=== PATIENT | male | born 1945 | race Caucasian/White ===

== ENCOUNTER 2019-07-03 15:34 | Outpatient (CLI) | payer OTHER, SELFPAY ==
[2019-07-03 17:28] LABS: Basophils % 0.5 %; Eosinophils # 0.4 10^3/uL (0.0-0.8); Hematocrit 37.5 % (42.0-52.0); Hemoglobin 11.9 g/dL (11.7-16.6); Lymphocytes # 0.7 10^3/uL (0.8-4.8); Lymphocytes % 11.3 %; Mean Corpuscular HGB Conc 31.7 g/dL (30.0-36.0); Mean Corpuscular Hemoglobin 30.1 pg (28.0-34.0); Mean Corpuscular Volume 94.9 fL (80-94); Monocytes # 0.7 10^3/uL (0.2-0.9); Monocytes % 11.8 %; Neutrophils # 4.1 10^3/uL (1.8-7.7); Neutrophils % 69.7 %; Nucleated Red Blood Cells % 0 %; Platelet Count 173 10^3/cmm (130-400); Red Blood Count 3.95 10^6/uL (4.1-5.3); Red Cell Distribution Width 13.7 % (12.1-15.1); White Blood Count 5.9 10^3/uL (4.0-10.0)
[2019-07-03 18:44] LABS: Anion Gap 12.4 (5-19); Blood Urea Nitrogen 21 mg/dL (8-23); Carbon Dioxide 30 mmol/L (22-29); Chloride 101 mmol/L (98-107); Glucose 270 mg/dL (65-115); Osmolality Calculated 294 mOsm/kg (285-295); Potassium 4.4 mmol/L (3.5-5.1); Sodium 139 mmol/L (136-145)
== END 2019-07-03 15:35 | disposition home or self-care (01) ==
LOC: LAB 15:37
PROVIDERS: Family Provider Internal Medicine; PCP Internal Medicine; Visit Provider Internal Medicine
DX: J18.9 Pneumonia, unspecified organism (principal)
CPT/HCPCS: 80048; 85025

== ENCOUNTER 2019-07-12 14:51 | Outpatient (RCR) | payer OTHER, SELFPAY | END 2019-07-16 23:59 | disposition home or self-care (01) | LOC: WOUND 14:51 | PROVIDERS: Family Provider Internal Medicine; PCP Internal Medicine; Visit Provider Nurse Practitioner Family | DX: L89.611 Pressure ulcer of right heel, stage 1 (principal) | CPT/HCPCS: 99203; G0463 ==

== ENCOUNTER 2019-11-05 16:42 | Inpatient (IN) | payer OTHER, SELFPAY ==
[2019-11-05] VITALS (8 sets, daily range): BP systolic 76–144; BP diastolic 58–93; PULSE 79–101; RESP 18–30; O2SAT 91–100; BMI 28.8
--- NOTE | 2019-11-05 16:52 | W.ED.SOB ---
Documented by User: Michael Lopez DO 11/06/19 06:14 HPI - SOB/Dyspnea General: Chief Complaint: Shortness of Breath/Dyspnea Stated Complaint: DIFFICULTY BREATHING Time Seen by Provider: 11/05/19 16:44 History of Present Illness: HPI Narrative: 74-year-old male comes in by EMS with shortness of breath. He was on BiPAP on arrival. He had received 4 sublingual nitro and an inch of Nitropaste prior to arrival as well. He was able to verbalize a little to me but even in the few minutes that his BiPAP was off he began to desaturate and become very short of breath he was able to tell me he has not been sick or had a fever the last few days he has been coughing up a little bit more than normal. He resides in a [facility]. MD elicited complaint: shortness of breath and cough Pertinent past history: COPD Onset (ago): day(s) Timing: constant Severity: severe Exacerbating factors: exertion Relieving factors: oxygen, rest and other (Improved with BiPAP once he arrived at the hospital) Known history of: COPD Associated symptoms: Reports chest congestion, cough and nausea; Deny chest pain or fever(s) Treatment prior to arrival: oxygen, bronchodilator, nitroglycerin and other (EMS BiPAP) Review of Systems Const: Denies: fever(s), chills, body aches, change in appetite, fatigue or malaise ENMT: Denies: throat pain, ear or mastoid pain, nasal discharge or nasal congestion Card: Denies: chest pain Resp: Reports: chest congestion GI: Reports: nausea : Denies: flank pain, dysuria, urinary frequency or urinary urgency Skin/Breast: Denies: rash or pruritus PFSH ED PFSH: Medical History BPH (benign prostatic hyperplasia) CAD (coronary artery disease) Chronic back pain CKD (chronic kidney disease), stage IV Diabetes Diabetic foot ulcer Osteomyelitis status post amputation Gross hematuria Hematuria HTN (hypertension) Hyperlipidemia Insulin-requiring or dependent type II diabetes mellitus Ischemic cardiomyopathy 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 Myocardial infarction Surgical History H/O cardiac catheterization Ischemic cardiomyopathy with three-vessel coronary disease History of biopsy of bladder Biopsy revealed intense acute on chronic cystitis without any signs of malignancy, 01/03 S/P coronary artery stent placement S/P cystoscopy S/P tonsillectomy Status post amputation of toe Family History Other CAD (coronary artery disease) Myocardial infarction Stroke Social History Smoking and tobacco status: former smoker Alcohol intake: never Substance/Drug Use: never Housing: Skilled Nursing Physical Exam Const: COMMON NORMALS: no acute distress GENERAL APPEARANCE: cooperative and comfortable ORIENTATION/CONSCIOUSNESS: Yes awake, Yes oriented to person, Yes oriented to place and Yes oriented to time HENMT: COMMON NORMALS: normocephalic and atraumatic HEAD & SCALP: normocephalic and atraumatic Eye: COMMON NORMALS: Equal, round and reactive pupils present, EOMs intact bilaterally, conjunctivae normal and no scleral icterus CONJUNCTIVA: Yes conjunctivae normal PUPIL: Yes Equal, round and reactive pupils present Neck/C-Spine: COMMON NORMALS: no JVD Lymph: LYMPHATIC: no lymphadenopathy noted and no lymphedema noted Resp: EFFORT & INSPECTION: Yes abnormal respiratory pattern, Yes tachypneic, Yes decreased respiratory effort and Yes labored AUSCULTATION: wheezes and diminished lung sounds Cardio: COMMON NORMALS: no JVD, regular rate, regular rhythm and No murmurs present (Cardio) RATE: regular rate RHYTHM: regular rhythm GI: COMMON NORMALS: Soft to palpation and No hepatosplenomegaly present AUSCULTATION: Yes normoactive bowel sounds PALPATION: Yes Soft to palpation, No Tenderness to palpation present (GI), No Guarding due to palpation present (GI) and Yes No hepatosplenomegaly present Extremity: COMMON NORMALS: normal to inspection, capillary refill normal, no clubbing, cyanosis or edema, no calf tenderness and no pedal edema Neuro: SENSORIUM/ORIENTATION: Yes oriented to person, Yes oriented to place and Yes oriented to time Skin: COMMON NORMALS: no rashes or lesions noted GENERAL SKIN EXAM: no rashes or lesions noted Course Vital Signs: Vital signs: Vital Signs Temperature 97.9 F 11/06/19 04:00 Pulse Rate 55 L 11/06/19 04:00 Respiratory Rate 24 H 11/06/19 04:00 Blood Pressure 103/47 11/06/19 04:00 Pulse Oximetry 97 11/06/19 04:00 MDM - SOB/Dyspnea MDM Narrative: Medical decision making narrative: Care transferred to Dr. Bonds at change of shift Lab Data: Labs: Lab Results 11/05/19 11/05/19 11/05/19 Range/Units 16:50 16:50 16:50 WBC 9.9 (4.0-10.0) 10^3/ uL RBC 4.44 (4.1-5.3) 10^6/u L Hgb 13.1 (11.7-16.6) g/dL Hct 43.3 (42.0-52.0) % MCV 97.5 H (80-94) fL MCH 29.5 (28.0-34.0) pg MCHC 30.3 (30.0-36.0) g/dL RDW 13.5 (12.1-15.1) % Plt Count 247 (130-400) 10^3/c mm MPV 10.9 H (7.4-10.4) fL Neut % (Auto) 78.5 % Lymph % (Auto) 13.5 % [place] % (Auto) 4.7 % Eos % (Auto) 2.3 % Baso % (Auto) 0.4 % Neut # (Auto) 7.79 H (1.8-7.7) 10^3/u L Lymph # (Auto) 1.3 (0.8-4.8) 10^3/u L [place] # (Auto) 0.5 (0.2-0.9) 10^3/u L Eos # (Auto) 0.2 (0.0-0.8) 10^3/u L Baso # (Auto) 0.0 (0.0-0.1) 10^3/u L Nucleated RBC % (a uto) 0 % Nucleated RBCs # 0.0 /100WBC Fibrinogen (184-529) mg/dL D-Dimer (0-0.59) ug/mIFE U Specimen Type Sample Site ABG pH (7.35-7.45) ABG pCO2 (35-45) mmHg ABG pO2 (80.0-100.0) mmH g ABG HCO3 (22-26) mmol/L ABG O2 Saturation ABG Base Excess (-2.0-2.0) mmol/ L Raphael Test A-a O2 Gradient (5-10) mmHg Hematocrit (42-52) % Hgb O2 Saturation (95-100) % Carboxyhemoglobin (0.4-20.1) %THgb Methemoglobin (0.4-1.5) % Total Hemoglobin (14-18) g/dL Ionized Calcium (1.1-1.4) mmol/L O2 Delivery Device FiO2 % Loader Operator Supervisor ID Sodium 137 (136-145) mmol/L Potassium 4.9 (3.5-5.1) mmol/L Chloride 105 (98-107) mmol/L Carbon Dioxide 19 L (22-29) mmol/L Anion Gap 17.9 (5-19) BUN 30 H (8-23) mg/dL Creatinine 2.0 H (0.7-1.2) mg/dL Glucose 455 H (65-115) mg/dL Calculated Osmolal ity 301 H (285-295) mOsm/k g Lactic Acid 1.7 (0.5-2.2) mmol/L Calcium 8.9 (8.5-10.5) mg/dL Ferritin (30-400) ng/mL Total Bilirubin 0.2 (0.15-1.2) mg/dL AST 11 (0-40) U/L ALT 9 (0-41) U/L Alkaline Phosphata se 114 (40-130) IU/L C-Reactive Protein (0.0-4.9) mg/L NT-Pro-B Natriuret Pep (0-450) pg/mL Total Protein 7.5 (6.6-8.7) g/dL Albumin 3.8 (3.5-5.2) g/dL Globulin 3.7 (1.3-4.6) g/dL Influenza Type A A g (Negative) Influenza Type B A g (Negative) 11/05/19 11/05/19 11/05/19 Range/Units 16:50 16:50 16:50 WBC (4.0-10.0) 10^3/ uL RBC (4.1-5.3) 10^6/u L Hgb (11.7-16.6) g/dL Hct (42.0-52.0) % MCV (80-94) fL MCH (28.0-34.0) pg MCHC (30.0-36.0) g/dL RDW (12.1-15.1) % Plt Count (130-400) 10^3/c mm MPV (7.4-10.4) fL Neut % (Auto) % Lymph % (Auto) % [place] % (Auto) % Eos % (Auto) % Baso % (Auto) % Neut # (Auto) (1.8-7.7) 10^3/u L Lymph # (Auto) (0.8-4.8) 10^3/u L [place] # (Auto) (0.2-0.9) 10^3/u L Eos # (Auto) (0.0-0.8) 10^3/u L Baso # (Auto) (0.0-0.1) 10^3/u L Nucleated RBC % (a uto) % Nucleated RBCs # /100WBC Fibrinogen 515 (184-529) mg/dL D-Dimer 2.55 H (0-0.59) ug/mIFE U Specimen Type Sample Site ABG pH (7.35-7.45) ABG pCO2 (35-45) mmHg ABG pO2 (80.0-100.0) mmH g ABG HCO3 (22-26) mmol/L ABG O2 Saturation ABG Base Excess (-2.0-2.0) mmol/ L Raphael Test A-a O2 Gradient (5-10) mmHg Hematocrit (42-52) % Hgb O2 Saturation (95-100) % Carboxyhemoglobin (0.4-20.1) %THgb Methemoglobin (0.4-1.5) % Total Hemoglobin (14-18) g/dL Ionized Calcium (1.1-1.4) mmol/L O2 Delivery Device FiO2 % Loader Operator Supervisor ID Sodium (136-145) mmol/L Potassium (3.5-5.1) mmol/L Chloride (98-107) mmol/L Carbon Dioxide (22-29) mmol/L Anion Gap (5-19) BUN (8-23) mg/dL Creatinine (0.7-1.2) mg/dL Glucose (65-115) mg/dL Calculated Osmolal ity (285-295) mOsm/k g Lactic Acid (0.5-2.2) mmol/L Calcium (8.5-10.5) mg/dL Ferritin 82 (30-400) ng/mL Total Bilirubin (0.15-1.2) mg/dL AST (0-40) U/L ALT (0-41) U/L Alkaline Phosphata se (40-130) IU/L C-Reactive Protein 6.4 H (0.0-4.9) mg/L NT-Pro-B Natriuret Pep 2245 H (0-450) pg/mL Total Protein (6.6-8.7) g/dL Albumin (3.5-5.2) g/dL Globulin (1.3-4.6) g/dL Influenza Type A A g (Negative) Influenza Type B A g (Negative) 11/05/19 11/05/19 Range/Units 17:07 17:15 WBC (4.0-10.0) 10^3/ uL RBC (4.1-5.3) 10^6/u L Hgb (11.7-16.6) g/dL Hct (42.0-52.0) % MCV (80-94) fL MCH (28.0-34.0) pg MCHC (30.0-36.0) g/dL RDW (12.1-15.1) % Plt Count (130-400) 10^3/c mm MPV (7.4-10.4) fL Neut % (Auto) % Lymph % (Auto) % [place] % (Auto) % Eos % (Auto) % Baso % (Auto) % Neut # (Auto) (1.8-7.7) 10^3/u L Lymph # (Auto) (0.8-4.8) 10^3/u L [place] # (Auto) (0.2-0.9) 10^3/u L Eos # (Auto) (0.0-0.8) 10^3/u L Baso # (Auto) (0.0-0.1) 10^3/u L Nucleated RBC % (a uto) % Nucleated RBCs # /100WBC Fibrinogen (184-529) mg/dL D-Dimer (0-0.59) ug/mIFE U Specimen Type Arterial Sample Site Radial, right ABG pH 7.28 L (7.35-7.45) ABG pCO2 43.8 (35-45) mmHg ABG pO2 102.0 H (80.0-100.0) mmH g ABG HCO3 20.7 L (22-26) mmol/L ABG O2 Saturation 97.8 ABG Base Excess -5.9 L (-2.0-2.0) mmol/ L Raphael Test Pos A-a O2 Gradient 89.4 H (5-10) mmHg Hematocrit 39.9 L (42-52) % Hgb O2 Saturation 96.1 (95-100) % Carboxyhemoglobin 0.8 (0.4-20.1) %THgb Methemoglobin 0.9 (0.4-1.5) % Total Hemoglobin 13.0 L (14-18) g/dL Ionized Calcium 1.2 (1.1-1.4) mmol/L O2 Delivery Device Bipap FiO2 35.0 % Loader Operator Supervisor ID glc Sodium 141.0 (136-145) mmol/L Potassium 4.9 (3.5-5.1) mmol/L Chloride (98-107) mmol/L Carbon Dioxide (22-29) mmol/L Anion Gap (5-19) BUN (8-23) mg/dL Creatinine (0.7-1.2) mg/dL Glucose 438.0 H (65-115) mg/dL Calculated Osmolal ity (285-295) mOsm/k g Lactic Acid (0.5-2.2) mmol/L Calcium (8.5-10.5) mg/dL Ferritin (30-400) ng/mL Total Bilirubin (0.15-1.2) mg/dL AST (0-40) U/L ALT (0-41) U/L Alkaline Phosphata se (40-130) IU/L C-Reactive Protein (0.0-4.9) mg/L NT-Pro-B Natriuret Pep (0-450) pg/mL Total Protein (6.6-8.7) g/dL Albumin (3.5-5.2) g/dL Globulin (1.3-4.6) g/dL Influenza Type A A g Negative (Negative) Influenza Type B A g Negative (Negative) Discharge Plan Discharge Patient Disposition: Admitted As Inpatient Admit Provider: Whitney Mcbride Clinical Impression: CHF exacerbation Pneumonia Qualifiers: Pneumonia type: due to unspecified organism Laterality: right Lung location: unspecified part of lung Qualified Code(s): J18.9 - Pneumonia, unspecified organism Condition: Stable Discharge Date/Time: 11/05/19 20:34 Coding Level of Care Code ED Injection Molding Technician for Chg Fwd Exam Comprehensive Documented by User: Mike Bonds MD 11/05/19 20:15 HPI - SOB/Dyspnea General: Chief Complaint: Shortness of Breath/Dyspnea Stated Complaint: DIFFICULTY BREATHING Time Seen by Provider: 11/05/19 16:44 PFSH ED PFSH: Medical History BPH (benign prostatic hyperplasia) CAD (coronary artery disease) Chronic back pain CKD (chronic kidney disease), stage IV Diabetes Diabetic foot ulcer Osteomyelitis status post amputation Gross hematuria Hematuria HTN (hypertension) Hyperlipidemia Insulin-requiring or dependent type II diabetes mellitus Ischemic cardiomyopathy 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 Myocardial infarction Surgical History H/O cardiac catheterization Ischemic cardiomyopathy with three-vessel coronary disease History of biopsy of bladder Biopsy revealed intense acute on chronic cystitis without any signs of malignancy, 01/03 S/P coronary artery stent placement S/P cystoscopy S/P tonsillectomy Status post amputation of toe Family History Other CAD (coronary artery disease) Myocardial infarction Stroke Social History Smoking and tobacco status: former smoker Alcohol intake: never Substance/Drug Use: never Housing: Skilled Nursing Course Vital Signs: Vital signs: Vital Signs Temperature 97.9 F 11/06/19 04:00 Pulse Rate 55 L 11/06/19 04:00 Respiratory Rate 24 H 11/06/19 04:00 Blood Pressure 103/47 11/06/19 04:00 Pulse Oximetry 97 11/06/19 04:00 MDM - SOB/Dyspnea MDM Narrative: Medical decision making narrative: Anish presents here with shortness of breath and is found to have a right-sided pneumonia along with CHF exacerbation. Patient is improved here on BiPAP. Patient was hypotensive originally likely from receiving nitro as his blood pressure here is improved. Patient's lactate is normal and he has no signs of septic shock. Will admit patient to the cardiac stepdown unit I spoke to hospitalist Dr. Tam. Lab Data: Labs: Lab Results 11/05/19 11/05/19 11/05/19 Range/Units 16:50 16:50 16:50 WBC 9.9 (4.0-10.0) 10^3/ uL RBC 4.44 (4.1-5.3) 10^6/u L Hgb 13.1 (11.7-16.6) g/dL Hct 43.3 (42.0-52.0) % MCV 97.5 H (80-94) fL MCH 29.5 (28.0-34.0) pg MCHC 30.3 (30.0-36.0) g/dL RDW 13.5 (12.1-15.1) % Plt Count 247 (130-400) 10^3/c mm MPV 10.9 H (7.4-10.4) fL Neut % (Auto) 78.5 % Lymph % (Auto) 13.5 % [place] % (Auto) 4.7 % Eos % (Auto) 2.3 % Baso % (Auto) 0.4 % Neut # (Auto) 7.79 H (1.8-7.7) 10^3/u L Lymph # (Auto) 1.3 (0.8-4.8) 10^3/u L [place] # (Auto) 0.5 (0.2-0.9) 10^3/u L Eos # (Auto) 0.2 (0.0-0.8) 10^3/u L Baso # (Auto) 0.0 (0.0-0.1) 10^3/u L Nucleated RBC % (a uto) 0 % Nucleated RBCs # 0.0 /100WBC Fibrinogen (184-529) mg/dL D-Dimer (0-0.59) ug/mIFE U Specimen Type Sample Site ABG pH (7.35-7.45) ABG pCO2 (35-45) mmHg ABG pO2 (80.0-100.0) mmH g ABG HCO3 (22-26) mmol/L ABG O2 Saturation ABG Base Excess (-2.0-2.0) mmol/ L Raphael Test A-a O2 Gradient (5-10) mmHg Hematocrit (42-52) % Hgb O2 Saturation (95-100) % Carboxyhemoglobin (0.4-20.1) %THgb Methemoglobin (0.4-1.5) % Total Hemoglobin (14-18) g/dL Ionized Calcium (1.1-1.4) mmol/L O2 Delivery Device FiO2 % Loader Operator Supervisor ID Sodium 137 (136-145) mmol/L Potassium 4.9 (3.5-5.1) mmol/L Chloride 105 (98-107) mmol/L Carbon Dioxide 19 L (22-29) mmol/L Anion Gap 17.9 (5-19) BUN 30 H (8-23) mg/dL Creatinine 2.0 H (0.7-1.2) mg/dL Glucose 455 H (65-115) mg/dL Calculated Osmolal ity 301 H (285-295) mOsm/k g Lactic Acid 1.7 (0.5-2.2) mmol/L Calcium 8.9 (8.5-10.5) mg/dL Ferritin (30-400) ng/mL Total Bilirubin 0.2 (0.15-1.2) mg/dL AST 11 (0-40) U/L ALT 9 (0-41) U/L Alkaline Phosphata se 114 (40-130) IU/L C-Reactive Protein (0.0-4.9) mg/L NT-Pro-B Natriuret Pep (0-450) pg/mL Total Protein 7.5 (6.6-8.7) g/dL Albumin 3.8 (3.5-5.2) g/dL Globulin 3.7 (1.3-4.6) g/dL Influenza Type A A g (Negative) Influenza Type B A g (Negative) 11/05/19 11/05/19 11/05/19 Range/Units 16:50 16:50 16:50 WBC (4.0-10.0) 10^3/ uL RBC (4.1-5.3) 10^6/u L Hgb (11.7-16.6) g/dL Hct (42.0-52.0) % MCV (80-94) fL MCH (28.0-34.0) pg MCHC (30.0-36.0) g/dL RDW (12.1-15.1) % Plt Count (130-400) 10^3/c mm MPV (7.4-10.4) fL Neut % (Auto) % Lymph % (Auto) % [place] % (Auto) % Eos % (Auto) % Baso % (Auto) % Neut # (Auto) (1.8-7.7) 10^3/u L Lymph # (Auto) (0.8-4.8) 10^3/u L [place] # (Auto) (0.2-0.9) 10^3/u L Eos # (Auto) (0.0-0.8) 10^3/u L Baso # (Auto) (0.0-0.1) 10^3/u L Nucleated RBC % (a uto) % Nucleated RBCs # /100WBC Fibrinogen 515 (184-529) mg/dL D-Dimer 2.55 H (0-0.59) ug/mIFE U Specimen Type Sample Site ABG pH (7.35-7.45) ABG pCO2 (35-45) mmHg ABG pO2 (80.0-100.0) mmH g ABG HCO3 (22-26) mmol/L ABG O2 Saturation ABG Base Excess (-2.0-2.0) mmol/ L Raphael Test A-a O2 Gradient (5-10) mmHg Hematocrit (42-52) % Hgb O2 Saturation (95-100) % Carboxyhemoglobin (0.4-20.1) %THgb Methemoglobin (0.4-1.5) % Total Hemoglobin (14-18) g/dL Ionized Calcium (1.1-1.4) mmol/L O2 Delivery Device FiO2 % Loader Operator Supervisor ID Sodium (136-145) mmol/L Potassium (3.5-5.1) mmol/L Chloride (98-107) mmol/L Carbon Dioxide (22-29) mmol/L Anion Gap (5-19) BUN (8-23) mg/dL Creatinine (0.7-1.2) mg/dL Glucose (65-115) mg/dL Calculated Osmolal ity (285-295) mOsm/k g Lactic Acid (0.5-2.2) mmol/L Calcium (8.5-10.5) mg/dL Ferritin 82 (30-400) ng/mL Total Bilirubin (0.15-1.2) mg/dL AST (0-40) U/L ALT (0-41) U/L Alkaline Phosphata se (40-130) IU/L C-Reactive Protein 6.4 H (0.0-4.9) mg/L NT-Pro-B Natriuret Pep 2245 H (0-450) pg/mL Total Protein (6.6-8.7) g/dL Albumin (3.5-5.2) g/dL Globulin (1.3-4.6) g/dL Influenza Type A A g (Negative) Influenza Type B A g (Negative) 11/05/19 11/05/19 Range/Units 17:07 17:15 WBC (4.0-10.0) 10^3/ uL RBC (4.1-5.3) 10^6/u L Hgb (11.7-16.6) g/dL Hct (42.0-52.0) % MCV (80-94) fL MCH (28.0-34.0) pg MCHC (30.0-36.0) g/dL RDW (12.1-15.1) % Plt Count (130-400) 10^3/c mm MPV (7.4-10.4) fL Neut % (Auto) % Lymph % (Auto) % [place] % (Auto) % Eos % (Auto) % Baso % (Auto) % Neut # (Auto) (1.8-7.7) 10^3/u L Lymph # (Auto) (0.8-4.8) 10^3/u L [place] # (Auto) (0.2-0.9) 10^3/u L Eos # (Auto) (0.0-0.8) 10^3/u L Baso # (Auto) (0.0-0.1) 10^3/u L Nucleated RBC % (a uto) % Nucleated RBCs # /100WBC Fibrinogen (184-529) mg/dL D-Dimer (0-0.59) ug/mIFE U Specimen Type Arterial Sample Site Radial, right ABG pH 7.28 L (7.35-7.45) ABG pCO2 43.8 (35-45) mmHg ABG pO2 102.0 H (80.0-100.0) mmH g ABG HCO3 20.7 L (22-26) mmol/L ABG O2 Saturation 97.8 ABG Base Excess -5.9 L (-2.0-2.0) mmol/ L Raphael Test Pos A-a O2 Gradient 89.4 H (5-10) mmHg Hematocrit 39.9 L (42-52) % Hgb O2 Saturation 96.1 (95-100) % Carboxyhemoglobin 0.8 (0.4-20.1) %THgb Methemoglobin 0.9 (0.4-1.5) % Total Hemoglobin 13.0 L (14-18) g/dL Ionized Calcium 1.2 (1.1-1.4) mmol/L O2 Delivery Device Bipap FiO2 35.0 % Loader Operator Supervisor ID glc Sodium 141.0 (136-145) mmol/L Potassium 4.9 (3.5-5.1) mmol/L Chloride (98-107) mmol/L Carbon Dioxide (22-29) mmol/L Anion Gap (5-19) BUN (8-23) mg/dL Creatinine (0.7-1.2) mg/dL Glucose 438.0 H (65-115) mg/dL Calculated Osmolal ity (285-295) mOsm/k g Lactic Acid (0.5-2.2) mmol/L Calcium (8.5-10.5) mg/dL Ferritin (30-400) ng/mL Total Bilirubin (0.15-1.2) mg/dL AST (0-40) U/L ALT (0-41) U/L Alkaline Phosphata se (40-130) IU/L C-Reactive Protein (0.0-4.9) mg/L NT-Pro-B Natriuret Pep (0-450) pg/mL Total Protein (6.6-8.7) g/dL Albumin (3.5-5.2) g/dL Globulin (1.3-4.6) g/dL Influenza Type A A g Negative (Negative) Influenza Type B A g Negative (Negative) Critical Care Time Critical Care Time: Critical Care Time: Yes Total Critical Care Time: 35 Attestation: This case had a high probability of a clinically significant, sudden, or life threatening deterioration of this patient's condition which required my full and direct attention, intervention and personal management. Discharge Plan Discharge Patient Disposition: Admitted As Inpatient Admit Provider: Whitney Mcbride Clinical Impression: CHF exacerbation Pneumonia Qualifiers: Pneumonia type: due to unspecified organism Laterality: right Lung location: unspecified part of lung Qualified Code(s): J18.9 - Pneumonia, unspecified organism Condition: Stable Discharge Date/Time: 11/05/19 20:34 Coding Level of Care Code ED Injection Molding Technician for g Fwd Exam Comprehensive
--- NOTE | 2019-11-05 16:54 | XRR_ITS ---
PROCEDURE INFORMATION: Exam: XR Chest, 1 View Exam date and time: 11/05/2019 5:29 PM Age: 74 years old Clinical indication: Cough and dyspnea; Prior surgery; Surgery date: 6+ months; Surgery type: Pacemaker; Additional info: Dyspnea/cough TECHNIQUE: Imaging protocol: XR of the chest Views: 1 view. COMPARISON: CR Chest 1 [place] [id number] 04/20/2018 11:11 PM FINDINGS: Lungs: Airspace disease, including newly developed right upper lobe airspace disease, consistent with bronchopneumonia in the appropriate clinical setting. Pleural space: Questionable small left pleural effusion. Heart/Mediastinum: Borderline cardiomegaly. Diaphragm: Asymmetric elevation of the right hemidiaphragm. Bones/joints: Degenerative change. XR/XR chest 1V portable [id number] IMPRESSION: Airspace disease, including newly developed right upper lobe airspace disease, consistent with bronchopneumonia in the appropriate clinical setting.
[2019-11-05 17:01] LABS: Basophils % 0.4 %; Eosinophils # 0.2 10^3/uL (0.0-0.8); Eosinophils % 2.3 %; Hematocrit 43.3 % (42.0-52.0); Hemoglobin 13.1 g/dL (11.7-16.6); Lymphocytes # 1.3 10^3/uL (0.8-4.8); Lymphocytes % 13.5 %; Mean Corpuscular HGB Conc 30.3 g/dL (30.0-36.0); Mean Corpuscular Hemoglobin 29.5 pg (28.0-34.0); Mean Corpuscular Volume 97.5 fL (80-94); Mean Platelet Volume 10.9 fL (7.4-10.4); Monocytes # 0.5 10^3/uL (0.2-0.9); Monocytes % 4.7 %; Neutrophils # 7.79 10^3/uL (1.8-7.7); Neutrophils % 78.5 %; Nucleated Red Blood Cells % 0 %; Platelet Count 247 10^3/cmm (130-400); Red Blood Count 4.44 10^6/uL (4.1-5.3); Red Cell Distribution Width 13.5 % (12.1-15.1); White Blood Count 9.9 10^3/uL (4.0-10.0)
--- NOTE | 2019-11-05 17:01 | PC.NURSE ---
PT BP OF 74/56 DR. TERAN AT BEDSIDE INFORMED DR. TERAN OF BP VERBALIZED UNDERSTANDING VO TO MONITOR PT.
[2019-11-05 17:15] LABS: Lactic Sepsis W/Reflex 1.7 mmol/L (0.5-2.2)
[2019-11-05 17:17] LABS: Alanine Aminotransferase 9 U/L (0-41); Albumin Level 3.8 g/dL (3.5-5.2); Alkaline Phosphatase 114 IU/L (40-130); Anion Gap 17.9 (5-19); Aspartate Amino Transferase 11 U/L (0-40); Blood Urea Nitrogen 30 mg/dL (8-23); Calcium 8.9 mg/dL (8.5-10.5); Carbon Dioxide 19 mmol/L (22-29); Chloride 105 mmol/L (98-107); Globulin 3.7 g/dL (1.3-4.6); Glucose 455 mg/dL (65-115); Osmolality Calculated 301 mOsm/kg (285-295); Potassium 4.9 mmol/L (3.5-5.1); Sodium 137 mmol/L (136-145); Total Bilirubin 0.2 mg/dL (0.15-1.2); Total Protein 7.5 g/dL (6.6-8.7)
[2019-11-05 17:26] LABS: ABG PCO2 43.8 mmHg (35-45); ABG PH Result 7.28 (7.35-7.45); Alveolar-Arterial Oxygen Gradi 89.4 mmHg (5-10); Arterial Blood Gas Hematocrit 39.9 % (42-52); Base Excess ABG -5.9 mmol/L (-2.0-2.0); Blood Gas Allen Test Pos; Blood Gas Operator Identificat glc; Blood Gas Sample Site Radial, right; Blood Gas Sample Type Arterial; Carboxyhemoglobin 0.8 %THgb (0.4-20.1); HCO3 ABG 20.7 mmol/L (22-26); HGB O2 Sat 96.1 % (95-100); Ionized Calcium Level - ABG 1.2 mmol/L (1.1-1.4); Methemoglobin 0.9 % (0.4-1.5); Oxygen Device BIPAP; Oxygen Saturation ABG 97.8; Potassium Level - ABG 4.9 mmol/L (3.5-5.0)
[2019-11-05 17:33] LABS: Influenza A by IFA Negative (Negative)
[2019-11-05 17:34] LABS: Influenza B by IFA Negative (Negative)
[2019-11-05 17:38] LABS: NT Pro B Type Natriuretic Pept 2245 pg/mL (0-450)
[2019-11-05 18:28] LABS: Fibrinogen 515 mg/dL (184-529)
[2019-11-05 18:30] LABS: D Dimer 2.55 ug/mIFEU (0-0.59)
[2019-11-05 18:34] LABS: C Reactive Protein 6.4 mg/L (0.0-4.9); Ferritin 82 ng/mL (30-400)
[2019-11-05] MEDS: aztreonam 2,000 MG in sodium chloride 0.9% (plus) 100 ML 200 MG IV (18:46)
[2019-11-05] MEDS: sodium chloride 0.9% 500 ML 999 ML IV (18:47)
[2019-11-05] MEDS: vancomycin 1,000 MG in sodium chloride 0.9% 250 ML 250 MG IV (19:40)
--- NOTE | 2019-11-05 20:30 | PC.NURSE ---
REPORT CALLED TO TAMY Mcbride RN
--- NOTE | 2019-11-05 20:37 | PM.HP ---
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 Patient is stating that he was in his usual state of health at the skilled nursing 1 all of a sudden around evening he started experiencing shortness of breath while he was at rest, he was struggling to take deep breaths, he did not notice any chest pain, fever, increased sputum production, he brings up greenish sputum which is chronic for him, he has not noticed any changes in his chronic cough or sputum production. He is denying dysuria, nausea, vomiting, headache or pleuritic chest pain. He has not noticed any orthopnea, PND, weight gain. Patient is endorsing sedentary lifestyle, he is using wheelchair for ambulation. Because of worsening shortness of breath he was sent to the hospital for further evaluation, EMS gave him 3 doses of nitroglycerin sublingually and put him on Nitropaste, loaded him with aspirin, on arrival to the ED he was hypotensive systolic blood pressure in 60s which improved after taking of Nitropaste and 500 mL bolus which improved blood pressure 103/60mmhg, patient was chest pain-free at that time, diagnosis in the ER revealed right lobe pneumonia, CHF exacerbation with bilateral vascular congestion evident on chest x-ray with high BNP, he was tested for COVID, he received vancomycin and aztreonam. Blood gas revealed metabolic acidosis due to LAURA, he did well on BiPAP. At the time of my evaluation patient was afebrile, hemodynamically stable, systolic blood pressure 144, no active respiratory distress, very low risk for tu COVID 19. Considering high d-dimer and troponin around 100 I have started him on therapeutic dose of heparin, loaded him with Plavix and started high-dose statin and metoprolol succinate, patient is chest pain-free. He was off BiPAP at the time of my evaluation. Review of Systems Const: Reports: body aches and fatigue; Denies: fever(s) or chills Eyes: Denies: change in vision ENMT: Denies: throat pain Card: Reports: dyspnea on exertion; Denies: chest pain, swelling of feet/ankles, lightheadedness, pre-syncope or orthopnea Resp: Reports: dyspnea and productive cough; Denies: wheezing, pain on inspiration or change in phlegm color GI: Denies: abdominal pain, nausea or vomiting : Denies: flank pain Musc: Denies: neck pain or back pain Skin/Breast: Reports: rash and lesions Neuro: Reports: weakness in extremities and difficulty walking; Denies: headache(s) Psych: Denies: anxiety or depression Endo: Reports: polyuria and polydipsia Robb/Lymph: Denies: easy bruising All/Imm: Denies: urticaria Medications/Allergies Home Medications Medication Instructions Recorded Confirmed Last Taken Type Lactobacillus acidophilus See Rx Instructions .ROUTE .COMPLEX 08/21/19 11/05/19 Unknown History acetaminophen 650 mg 650 mg PO Q6H tab 08/21/19 11/05/19 Unknown History tablet,extended release albuterol sulfate 2.5 mg INHALATION Q6H PRN 08/21/19 11/05/19 Unknown History ascorbic acid (vitamin C) 500 mg 500 mg PO BID cap 08/21/19 11/05/19 Unknown History capsule aspirin 81 mg chewable tablet 81 mg PO DAILY 08/21/19 11/05/19 11/05/19 History atorvastatin 20 mg tablet 20 mg PO DAILY 08/21/19 11/05/19 Unknown History famotidine 20 mg tablet 20 mg PO DAILY 08/21/19 11/05/19 11/05/19 History finasteride 5 mg tablet 5 mg PO DAILY 08/21/19 11/05/19 Unknown History gabapentin 300 mg capsule 300 mg PO TID 08/21/19 11/05/19 11/05/19 History guaifenesin 400 mg tablet 400 mg PO DAILY tab 08/21/19 11/05/19 Unknown History insulin glargine 100 unit/mL (3 45 unit SUBCUT DAILY ml 08/21/19 11/05/19 Unknown History mL) subcutaneous pen lisinopril 5 mg tablet 5 mg PO DAILY 08/21/19 11/05/19 11/05/19 History loperamide 2 mg tablet 2 mg PO Q6H PRN 08/21/19 11/05/19 Unknown History metoprolol tartrate 50 mg tablet 50 mg PO DAILY 08/21/19 11/05/19 Unknown History multivitamin,st-kuou-mulqhidm 1 tab PO DAILY 08/21/19 11/05/19 Unknown History tamsulosin 0.4 mg capsule 0.4 mg PO DAILY 08/21/19 11/05/19 Unknown History Allergies Allergy/AdvReac Type Severity Reaction Status Date / Time ciprofloxacin Allergy Unknown Verified 11/05/19 18:59 methocarbamol Allergy Unknown Verified 08/21/19 14:07 Penicillins Allergy Unknown Verified 08/21/19 14:07 PFSH Acute PFSH: Medical History BPH (benign prostatic hyperplasia) CAD (coronary artery disease) Chronic back pain CKD (chronic kidney disease), stage IV Diabetes Diabetic foot ulcer Osteomyelitis status post amputation Gross hematuria Hematuria HTN (hypertension) Hyperlipidemia Insulin-requiring or dependent type II diabetes mellitus Ischemic cardiomyopathy 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 Myocardial infarction Surgical History H/O cardiac catheterization Ischemic cardiomyopathy with three-vessel coronary disease History of biopsy of bladder Biopsy revealed intense acute on chronic cystitis without any signs of malignancy, 01/03 S/P coronary artery stent placement S/P cystoscopy S/P tonsillectomy Status post amputation of toe Family History Other CAD (coronary artery disease) Myocardial infarction Stroke Social History Smoking and tobacco status: former smoker Alcohol intake: never Substance/Drug Use: never Housing: Detention Vitals/I&O/Wt Last Vital Signs Pulse 79 11/05/19 19:30 Resp 24 H 11/05/19 19:30 BP 101/74 11/05/19 19:30 Pulse Ox 100 11/05/19 19:30 Weight last 48 hrs Weight 102.058 kg Physical Exam Narrative: EXAM NARRATIVE: Head to toe examination Elderly male without any active respiratory distress saturating well 95% on room air Pleasant to communicate Alert oriented x3 GCS 15 EOMI, PERRLA Proximal muscle weakness, Diabetic proximal muscle dystrophy S1, S2 no clinical signs of CHF exacerbation, no lower extremity edema, Venous stasis dermatitis bilateral lower extremity Left first MTP amputation site without any active drainage Abdomen soft nontender nondistended bowel sound present Bilateral breath sounds with crackles diffuse without any active wheezing, no active restaurant distress or use of accessory muscles Irritable mood and behavior No ischemia gangrene ulcer of lower extremity Dorsalis pedis pulses 2+ bilaterally Data : 11/05/19 16:50 11/05/19 16:50 Micro: Microbiology 11/05/19 17:20 Blood Culture - Preliminary Blood SPECIMEN COLLECTED 11/05/19 16:50 Blood Culture - Preliminary Blood SPECIMEN COLLECTED A&P Assessment and plan (1) CHF exacerbation: Status: Acute (2) Pneumonia: Status: Acute Qualifiers: Laterality: right Lung location: unspecified part of lung Pneumonia type: due to unspecified organism Qualified Code(s): J18.9 - Pneumonia, unspecified organism (3) NSTEMI (non-ST elevated myocardial infarction): Status: Acute (4) Ischemic cardiomyopathy: Status: Acute (5) Acute kidney injury superimposed on chronic kidney disease: Status: Acute Additional A&P Information Acute CHF exacerbation due to right sided pneumonia EF 40%, high BNP Clinically no overt signs of CHF exacerbation Chest imaging is revealing bilateral pulmonary venous congestion He is na?ve to Lasix I would use 40 mg for now Echo in the am Non-ST segment elevation [place] High troponin and d-dimer without ST segment elevation I would start him on therapeutic dose of heparin because of his established history of coronary disease Currently chest pain-free We will follow-up with the echo in the am Right now I do not have a good diagnosis for high d-dimer(other than pneumonia, but he is low on pneumonia severity index as well), continue heparin drip, will request perfusion scan in the morning to rule out PE considering his sedentary lifestyle, he is low risk for COVID, no signs of DIC Right-sided pneumonia Is from skilled nursing no recent visit to the hospital or use of antibiotics in last 90 days, I would use ceftriaxone and azithromycin, bacterial and Legionella antigen to be tested, he received vancomycin and aztreonam in the ED, currently afebrile no signs of sepsis Pneumonia severity index is very low No active respiratory distress COVID to be ruled out: However low risk Acute on chronic kidney disease stage III-IV with metabolic acidosis Hold lisinopril This is most likely cardiorenal Anticipating improvement with Lasix Baseline creatinine seems to be around 1.4-1.5 Metabolic acidosis with mild CO2 retention currently doing well off BiPAP, he required BiPAP for about half an hour in the ED Goals of care: Patient wants CPR without intubation He is DNI Cardiac consistent carb diet DVT prophylaxis not needed because of active heparin drip therapeutic dose Attestations Medical Necessity Statement*: Anticipating stay in the hospital cross more than 2 midnights currently need management for pneumonia and non-ST segment elevation [place] with CHF exacerbation Time Spent in Patient Care: (>than 50% of time spent in counselling and/or direct pt care on unit). 60 minutes Coding Level of Care Code Acute Air Conditioner Installer Helper for Idalmisg Fwd Diagnoses CHF exacerbation I50.9 Pneumonia J18.9 Laterality: right Lung location: unspecified part of lung Pneumonia type: due to unspecified organism NSTEMI (non-ST elevated myocardial infarction) I21.4 Ischemic cardiomyopathy I25.5 Acute kidney injury superimposed on chronic kidney disease N17.9; N18.9
--- NOTE | 2019-11-05 20:40 | PC.NURSE ---
Patient arrived from ER. Patient alert and oriented. Patient on covid precautions. Patient vitals obtained and telemetry placed. Paper work not sent from skilled nursing will attempt to obtain.
[2019-11-05 20:58] LABS: Troponin(5th) Baseline 99 ng/L (0-15)
--- NOTE | 2019-11-05 22:00 | ECG_ITS ---
[facility] Test Date: 2019-11-06 Pat Name: Anish Yoder Department: Room: 103 Gender: Male Field Service Manager: mal NATHANB: 1945 Requested By: Whitney Mcbride Order Number: [id number] Joana MD: Filiberto Stone M.D. Measurements Intervals [place] Rate: 62 P: -4 IN: 211 QRS: -53 QRSD: 110 T: 84 QT: 424 QTc: 433 Interpretive Statements SINUS RHYTHM WITH FIRST DEGREE AV BLOCK POSSIBLE ANTERIOR MYOCARDIAL INFARCTION [30 ms Q WAVE IN V3/V4, OR R < 0.2 mV IN V4], PROBABLY OLD INFERIOR MYOCARDIAL INFARCTION [40+ ms Q WAVE AND/OR ST/T ABNORMALITY IN II/aVF], PROBABLY OLD Compared to ECG 04/20/2018 23:32:35 No significant changes Electronically Signed On 11-06-2019 20:27:36 CDT by Filiberto Stone M.D. [id number]
[2019-11-05 22:02] LABS: Glucose Point of Care 395 mg/dL (70-110)
[2019-11-05] MEDS: atorvastatin 40 mg Tablet 80 MG PO (22:42)
[2019-11-05 22:58] LABS: Troponin 5 2HR 123.9 ng/L (0-15); Troponin 5 2HR Delta 24.9 ABS# (0-10)
--- NOTE | 2019-11-05 23:00 | PC.NURSE ---
Patient refused heparin drip and plavix. Attempted to educate patient on the need for medication. Doctor notified.
[2019-11-06] VITALS (9 sets, daily range): BP systolic 92–126; BP diastolic 47–72; PULSE 53–93; RESP 17–24; TEMP 36.6–37; O2SAT 92–98
--- NOTE | 2019-11-06 | PC.NURSE ---
Addendum entered by Rebecca Tarango RN 11/06/19 03:22: still awaiting fax with updated medication list. Original Note: called [facility] reguarding medication list and the nurse stated she would fax over a medication list.
--- NOTE | 2019-11-06 01:54 | ECG_ITS ---
[facility] Test Date: 2019-11-06 Pat Name: Anish Yoder Department: Room: 103 Gender: Male Entry Level Lab Technician: : 1945 Requested By: Mike Bonds Order Number: [id number] Joana MD: Filiberto Stone M.D. Measurements Intervals [place] Rate: 54 P: -21 [place]: 235 QRS: -47 QRSD: 102 T: 59 QT: 381 QTc: 363 Interpretive Statements SINUS BRADYCARDIA WITH SINUS ARRHYTHMIA WITH FIRST DEGREE AV BLOCK POSSIBLE ANTERIOR MYOCARDIAL INFARCTION [30 ms Q WAVE IN V3/V4, OR R < 0.2 mV IN V4], PROBABLY OLD INFERIOR MYOCARDIAL INFARCTION [40+ ms Q WAVE AND/OR ST/T ABNORMALITY IN II/aVF], PROBABLY OLD Compared to ECG 11/06/2019 00:37:02 Sinus rhythm no longer present Myocardial infarct finding still present Electronically Signed On 11-06-2019 20:37:11 CDT by Filiberto Stone M.D. [id number]
[2019-11-06 03:01] LABS: Basophils % 0.3 %; Eosinophils # 0.1 10^3/uL (0.0-0.8); Eosinophils % 1.1 %; Hematocrit 34.3 % (42.0-52.0); Hemoglobin 10.8 g/dL (11.7-16.6); Lymphocytes # 1.2 10^3/uL (0.8-4.8); Lymphocytes % 13.5 %; Mean Corpuscular HGB Conc 31.5 g/dL (30.0-36.0); Mean Corpuscular Hemoglobin 30.2 pg (28.0-34.0); Mean Corpuscular Volume 95.8 fL (80-94); Mean Platelet Volume 11.5 fL (7.4-10.4); Monocytes % 10.7 %; Neutrophils # 6.75 10^3/uL (1.8-7.7); Neutrophils % 74.1 %; Nucleated Red Blood Cells % 0 %; Platelet Count 187 10^3/cmm (130-400); Red Blood Count 3.58 10^6/uL (4.1-5.3); Red Cell Distribution Width 13.7 % (12.1-15.1); White Blood Count 9.1 10^3/uL (4.0-10.0)
[2019-11-06 03:08] LABS: Troponin 5 6HR 143.4 ng/L (0-15); Troponin 5 6HR Delta 44.4 ng/L (0-12)
[2019-11-06 03:10] LABS: Anion Gap 17.6 (5-19); Blood Urea Nitrogen 31 mg/dL (8-23); Calcium 7.9 mg/dL (8.5-10.5); Carbon Dioxide 20 mmol/L (22-29); Chloride 105 mmol/L (98-107); Glucose 199 mg/dL (65-115); Osmolality Calculated 289 mOsm/kg (285-295); Potassium 4.6 mmol/L (3.5-5.1); Sodium 138 mmol/L (136-145)
--- NOTE | 2019-11-06 03:40 | PC.NURSE ---
Dr. Mcbride notified of elevated troponin. Doctor Reed talked with patient about the heparin and why he was refusing. Patient refused heparin drip due to past family experience. Will continue to monitor patient.
--- NOTE | 2019-11-06 06:12 | PC.NURSE ---
End of Shift: Patient has had no complaints of chest pain. Patient is aware of risks/benefits after talking to the Doctor about heparin and patient does not not want blood thinners. Patient is resting comfortable in bed and vitals are stable. Will continue to monitor.
[2019-11-06 06:20] LABS: Glucose Point of Care 239 mg/dL (70-110)
[2019-11-06] MEDS: FUROsemide 40 mg Tablet PO (07:14)
--- NOTE | 2019-11-06 08:59 | USCV_ITS ---
Anish Yoder Age: 74 Gender: M : 1945 Exam Date: 11/06/2019 11:14 Ordering Phys: Brijesh August MD Technologist: Malorie Lozano Exam Location: [facility] [place] Indication: PAINFUL LEGS HISTORY: Painful Legs PROCEDURES: Venous duplex imaging was performed in bilateral lower extremities. The following venous structures were evaluated: common femoral vein, profunda vein, proximal portion of the greater saphenous vein, superficial femoral vein, and the popliteal vein. In addition, the posterior tibial and peroneal trunk were evaluated. Serial compression, augmentation maneuvers, and spectral Doppler flow evaluation were performed. FINDINGS: Normal 2-D Doppler and augmentation and compressibility throughout the lower extremity venous structures. Additional imaging through the proximal calf veins also reveals no thrombus. Limited evaluation of the greater saphenous vein is patent with no thrombus. CONCLUSIONS No DVT bilateral lower extremities. Dr. Tiffany Garcia DO (Electronically Signed) Final Date: 06 November 2019 12:45 S
--- NOTE | 2019-11-06 09:00 | XR_ITS ---
WS: [id number] PORTABLE CHEST HISTORY: follow up pneumonia COMPARISON: 11/05/2019 Lung volumes are decreased with moderate elevation of the RIGHT hemidiaphragm. Significant improvemen t in aeration of the RIGHT upper lobe. There is still vague increased opacification and atelectasis. Pulmonary vasculature is improved. Small LEFT pleural effusion suspected. Cardiac size: Moderately enlarged cardiac silhouette. Mediastinum/Aorta: Mild atherosclerosis aorta. No osseous abnormality seen. XR/XR chest 1V portable [id number] IMPRESSION: 1. Significant improvement in the RIGHT upper lobe pneumonia since 11/05/2019. 2. Mild improvement in pulmonary edema and additional bilateral interstitial t hickening.
[2019-11-06] MEDS: famotidine 20 mg Tablet PO (09:31)
[2019-11-06] MEDS: aspirin 81 mg Chew Tablet PO (09:31)
[2019-11-06] MEDS: tamsulosin 0.4 mg Capsule PO (09:32)
[2019-11-06] MEDS: finasteride 5 mg Tablet PO (09:32)
[2019-11-06] MEDS: atorvastatin 40 mg Tablet 80 MG PO (09:33)
[2019-11-06] MEDS: azithromycin 250 mg Tablet 500 MG PO (09:33)
[2019-11-06] MEDS: cefTRIAXone 1,000 MG in sodium chloride 0.9% (plus) 50 ML 100 MG IV (09:35)
[2019-11-06] MEDS: insulin glargine 100 units/1 mL 25 UNIT SUBCUT (09:55)
--- NOTE | 2019-11-06 10:03 | PC.NURSE ---
patient refusing to take plavix or metoprolol this am Dr carreno notified instructions to explain again to patient why he needs to take the plavix patient educated on plavix and the importance of the medication to medicatlly manage his condition patient states when i get a confirmation that i have a blood clot in my legs i will take the plavix until then I will not take it' Mata notified of patient continued refusal
--- NOTE | 2019-11-06 10:54 | PC.CHAP ---
Pastoral Care Encounter/Spiritual Assessment Type of Contact [] Declined student support counselor visit [] Patient/Family/Request visit [] Outpatient visit [] Follow-up visit [] Physician referral [] Code/Alert [x] Routine visit [] Staff referral [] Actively dying [] Patient sleeping [] Family support [] [] Out of room [] Palliative care [] [] Receiving care in room [] Pre-surgical visit [] Trauma [] Long length of stay [] ICU visit [x] Other: Isolation Relational/Emotional Strength [] Patient feels connected with others/family/visitors/staff [] Distress [] Loneliness/isolation [] Abandonment Spirituality of Patient [] Person of Alanis [] Attends Taoist of their Alanis [] Believes in Prayer [] Reads Bible or Yazidi materials [] There are Spiritual issues to be addressed [employer] Advanced Operator Maintainer Interventions [] Prayer [] Active listening [] Non-anxious presence [] Spiritual/emotional support [] Crisis/trauma care [] Spiritual counseling [] Bereavement support [] Provided bereavement packet [] Provided Bible/devotional materials [] Provided toy/stuffed animal, coloring book to patient or family member [] Provided Communion [] Anointing/[place] [] Salvation [] Completed spiritual assessment [] Other: Impact on Illness or Injury [] Angry [] Fearful [] Anxious [] Often cries [] Exhaustion [] Unable to work [] Unable to attend jewish [] Unable to walk/stand [] Unable to read [] Unable to drive [] Unable to eat/drink [] Unable to sleep [] Unable to be with family [] Patient intubated [] Other: Summary Time spent with patient
[2019-11-06 11:10] LABS: Glucose Point of Care 153 mg/dL (70-110)
--- NOTE | 2019-11-06 12:49 | PC.NURSE ---
medications confirmed with Basia at [facility]
--- NOTE | 2019-11-06 13:07 | PM.PN ---
Subjective Subjective: Interval history: Anish reports he does not want to be on the heparin. He does not want any anticoagulant. He would only want treated medically with medicines for an AR if he had one. He does not want any surgical procedures. He reports he will allow venous duplex of his legs. He denies any chest pain now. He reports no shortness of breath now. He reports no dyspnea. History and physical was reviewed. Medications: Reviewed: Yes Vitals/I&O/Wt Last Vital Signs Temp 98.0 F 11/06/19 10:37 Pulse 53 L 11/06/19 10:37 Resp 18 11/06/19 10:37 BP 94/55 11/06/19 10:37 Pulse Ox 94 11/06/19 10:37 11/05/19 11/06/19 11/06/19 22:59 06:59 14:59 Intake Total 200 / 200 600 / 800 Output Total 350 / 350 100 / 450 Balance -150 / -150 500 / 350 Weight last 48 hrs Weight 102.058 kg Physical Exam Narrative: EXAM NARRATIVE: General exam no apparent distress Cardiovascular regular rhythm, bradycardic rate, without murmur Lungs clear no wheezing Abdomen is soft with positive bowel sounds Extremities no cyanosis clubbing or edema Data : 11/06/19 02:33 11/06/19 02:33 Micro: Microbiology 11/05/19 21:45 Legionella Urinary Antigen - Final Urine,Voided Bacterial Antigens - Final 11/05/19 17:20 Blood Culture - Preliminary Blood SPECIMEN COLLECTED 11/05/19 16:50 Blood Culture - Preliminary Blood SPECIMEN COLLECTED A&P Assessment and plan (1) CHF exacerbation: I think from the description of the events he may have had acute pulmonary edema. He is already significantly better and appears better compensated although slightly hypotensive. His heart rate is also slightly bradycardic. This appears to be sinus bradycardia, and he was on a beta-saman prior to presenting to the hospital. I discussed with him with his elevated d-dimer I could not rule out a pulmonary embolism. I discussed with testing avenues, potential further treatment with anticoagulants. He is not really wanting to take any blood thinners. He does not want a CTA. He will allow venous duplex. VQ scan could also be considered. Previous ejection fraction was 40%. Considering his refusal other than medical management and echocardiogram will not be helpful COVID test is pending Diuresis if blood pressure allows Status: Acute (2) Pneumonia: Continue IV Rocephin, azithromycin Status: Acute Qualifiers: Laterality: right Lung location: unspecified part of lung Pneumonia type: due to unspecified organism Qualified Code(s): J18.9 - Pneumonia, unspecified organism (3) NSTEMI (non-ST elevated myocardial infarction): Plavix. Currently he is refusing. Aspirin Statin Avoid beta-saman currently secondary to hypotension Status: Acute (4) Ischemic cardiomyopathy: See above Status: Acute (5) Acute kidney injury superimposed on chronic kidney disease: Repeat laboratory in the morning Hold MARCY inhibitor Status: Acute Additional A&P Information Bradycardia. Hold beta-blockers currently. Metabolic acidosis with mild respiratory acidosis superimposed. Now off BiPAP and appears to be doing well Goals of care: Patient wants CPR without intubation He is DNI He refuses anticoagulants. SCDs will be ordered. Attestations Medical Necessity Statement*: Needs continued hospitalization for close follow-up of pulmonary edema with CHF with adjustment of medications. Coding Level of Care Code Acute Security Checker for Idalmis Delmi Diagnoses CHF exacerbation I50.9 Pneumonia J18.9 Laterality: right Lung location: unspecified part of lung Pneumonia type: due to unspecified organism NSTEMI (non-ST elevated myocardial infarction) I21.4 Ischemic cardiomyopathy I25.5 Acute kidney injury superimposed on chronic kidney disease N17.9; N18.9
--- NOTE | 2019-11-06 14:15 | PC.NURSE ---
contacted Dr. August with patient concerns of not having his gabapentin New instructions given to order home dose of gabapentin 300mg TID also gave instructions to change acetaminophen to PRN instead of scheduled
[2019-11-06] MEDS: gabapentin 300 mg Capsule PO ×2 (14:43→20:51)
[2019-11-06 16:19] LABS: Glucose Point of Care 142 mg/dL (70-110)
--- NOTE | 2019-11-06 19:35 | PC.NURSE ---
Received bedside report from Donna Fernandez RN. Patient resting in bed watching tv. Denies needs or discomforts at this time. No distress observed. Discussed plan for this evening. Patient verbalized understanding.
[2019-11-06 20:39] LABS: Glucose Point of Care 99 mg/dL (70-110)
[2019-11-07 04:00] VITALS: BP 135/75; PULSE 75; RESP 18; TEMP 36.8; O2SAT 96
[2019-11-07 05:57] LABS: Alanine Aminotransferase 6 U/L (0-41); Albumin Level 3.5 g/dL (3.5-5.2); Alkaline Phosphatase 87 IU/L (40-130); Aspartate Amino Transferase 10 U/L (0-40); Blood Urea Nitrogen 33 mg/dL (8-23); Calcium 8.5 mg/dL (8.5-10.5); Carbon Dioxide 21 mmol/L (22-29); Chloride 106 mmol/L (98-107); Globulin 3.3 g/dL (1.3-4.6); Glucose 94 mg/dL (65-115); Osmolality Calculated 283 mOsm/kg (285-295); Sodium 138 mmol/L (136-145); Total Bilirubin 0.3 mg/dL (0.15-1.2); Total Protein 6.8 g/dL (6.6-8.7)
[2019-11-07 06:04] LABS: Basophils % 0.4 %; Eosinophils # 0.2 10^3/uL (0.0-0.8); Eosinophils % 2.9 %; Hematocrit 36.9 % (42.0-52.0); Hemoglobin 11.5 g/dL (11.7-16.6); Lymphocytes # 1.2 10^3/uL (0.8-4.8); Lymphocytes % 14.3 %; Mean Corpuscular HGB Conc 31.2 g/dL (30.0-36.0); Mean Corpuscular Hemoglobin 29.6 pg (28.0-34.0); Mean Corpuscular Volume 94.9 fL (80-94); Monocytes # 0.7 10^3/uL (0.2-0.9); Monocytes % 7.9 %; Neutrophils # 6.11 10^3/uL (1.8-7.7); Nucleated Red Blood Cells % 0 %; Platelet Count 200 10^3/cmm (130-400); Red Blood Count 3.89 10^6/uL (4.1-5.3); Red Cell Distribution Width 13.2 % (12.1-15.1); White Blood Count 8.3 10^3/uL (4.0-10.0)
[2019-11-07 06:53] LABS: Glucose Point of Care 94 mg/dL (70-110)
[2019-11-07 07:01] LABS: Coronavirus Lab Test PTC NOT DETECTED
[2019-11-07 07:43] VITALS: BP 138/83; PULSE 81; RESP 24; TEMP 36.6; O2SAT 95
[2019-11-07] MEDS: FUROsemide 40 mg Tablet PO (07:45)
[2019-11-07] MEDS: azithromycin 250 mg Tablet 500 MG PO (08:04)
[2019-11-07] MEDS: finasteride 5 mg Tablet PO (08:05)
[2019-11-07] MEDS: famotidine 20 mg Tablet PO (08:05)
[2019-11-07] MEDS: gabapentin 300 mg Capsule PO (08:05)
[2019-11-07] MEDS: cefTRIAXone 1,000 MG in sodium chloride 0.9% (plus) 50 ML 100 MG IV (08:05)
[2019-11-07] MEDS: aspirin 81 mg Chew Tablet PO (08:05)
[2019-11-07] MEDS: atorvastatin 40 mg Tablet 80 MG PO (08:05)
[2019-11-07] MEDS: tamsulosin 0.4 mg Capsule PO (08:05)
[2019-11-07] MEDS: insulin glargine 100 units/1 mL 25 UNIT SUBCUT (08:29)
--- NOTE | 2019-11-07 08:30 | PC.NURSE ---
notified DR carreno of neg. covid results
[2019-11-07 09:03] VITALS: PULSE 84; RESP 17; O2SAT 94
[2019-11-07 10:50] VITALS: BP 119/70; PULSE 77; RESP 19; O2SAT 95
--- NOTE | 2019-11-07 11:24 | P.DS_ITS ---
Discharge Providers Date of Admission: 11/05/19 19:54 Date of Discharge: November 07, 2019 Attending Provider at Admission: Whitney Mcbride MD Attending Provider at Discharge: Brijesh August MD Primary Care Provider: Bj Serrato DO Diagnoses at Discharge Discharge Diagnosis (1) CHF exacerbation: Status: Acute Problem details: Compensated currently. Will discharge on 20 mg Lasix daily. If he has increasing shortness of breath this may need to be increased. Discharge creatinine 2.2 (2) Pneumonia: Status: Acute Problem details: Will finish 7 days of cefdinir Qualifiers: Laterality: right Lung location: unspecified part of lung Pneumonia type: due to unspecified organism Qualified Code(s): J18.9 - Pneumonia, unspecified organism (3) NSTEMI (non-ST elevated myocardial infarction): Status: Acute Problem details: Refuses consideration for any evaluation or treatment other than medication. Significant bradycardia precludes use of beta-saman. MARCY inhibitor unable to be used secondary to kidney disease. Placed on Plavix, Lasix, statin. (4) Ischemic cardiomyopathy: Status: Acute (5) Acute kidney injury superimposed on chronic kidney disease: Status: Acute Reason for Visit Reason for Visit: DIFFICULTY BREATHING Hospital Course Hospital Course: Anish is a 74-year-old white male that presented to the hospital with shortness of breath. No elevation of ST segments were noted on EKG. Troponin was found to be elevated, with a significant delta. Chest x-ray was more consistent with pneumonia. BNP was elevated. He was diuresed, given IV antibiotics. Beta-saman was attempted but he was significantly bradycardic which precluded its use. Plavix was initiated. Statin was initiated. I have visited with him regarding further evaluation of this as well as possible pulmonary embolism and he refused most intervention. He did allow a venous duplex which showed no DVT. He refused a VQ scan. He refused any nuclear s tress testing or angiogram, preferring only to be medically managed. Risks of and/or disability were discussed. By November 06 with medical management he was on room air oxygen, afebrile, and requested to go back to the nursing facility. Arrangements were made for this. Physical Exam Narrative: EXAM NARRATIVE: General exam no apparent distress Cardiovascular regular rate and rhythm without murmur Lungs clear Abdomen is soft with positive bowel sounds Extremities no cyanosis clubbing or edema. Discharge Data Data Completed and Pending: Completed Studies During Hospitalization Category Date Time Status XR chest 1V saleem ble [id number] Routine Exams 11/06/19 09:00 Completed XR chest 1V saleem ble [id number] Stat Exams 11/05/19 16:54 [place] [id number] Routin e Ultrasound 11/06/19 08:59 Completed Pending at discharge Category Date Time Status Blood Culture Sta t Lab 11/05/19 17:20 Results Sputum Culture an d Gram Stain Stat Lab 11/05/19 17:40 Uncollected Labs from last 24 hours 11/07/19 11/07/19 11/07/19 06:31 05:20 05:20 WBC 8.3 RBC 3.89 L Hgb 11.5 L Hct 36.9 L MCV 94.9 H MCH 29.6 MCHC 31.2 RDW 13.2 Plt Count 200 MPV 11.0 H Neut % (Auto) 74.0 Lymph % (Auto) 14.3 [place] % (Auto) 7.9 Eos % (Auto) 2.9 Baso % (Auto) 0.4 Neut # (Auto) 6.11 Lymph # (Auto) 1.2 [place] # (Auto) 0.7 Eos # (Auto) 0.2 Baso # (Auto) 0.0 Nucleated RBC % (a uto) 0 Nucleated RBCs # 0.0 Sodium 138 Potassium 4.0 Chloride 106 Carbon Dioxide 21 L Anion Gap 15.0 BUN 33 H Creatinine 2.2 H GFR Calculation Not Reportable Glucose 94 POC Glucose 94 Calculated Osmolal ity 283 L Calcium 8.5 Total Bilirubin 0.3 AST 10 ALT 6 Alkaline Phosphata se 87 Total Protein 6.8 Albumin 3.5 Globulin 3.3 Nasal/Oral COVID-1 9 PCR 11/06/19 11/06/19 11/05/19 19:59 15:52 18:39 WBC RBC Hgb Hct MCV MCH MCHC RDW Plt Count MPV Neut % (Auto) Lymph % (Auto) [place] % (Auto) Eos % (Auto) Baso % (Auto) Neut # (Auto) Lymph # (Auto) [place] # (Auto) Eos # (Auto) Baso # (Auto) Nucleated RBC % (a uto) Nucleated RBCs # Sodium Potassium Chloride Carbon Dioxide Anion Gap BUN Creatinine GFR Calculation Glucose POC Glucose 99 142 Calculated Osmolal ity Calcium Total Bilirubin AST ALT Alkaline Phosphata se Total Protein Albumin Globulin Nasal/Oral COVID-1 9 PCR Not detected Vitals: Last Vital Signs Temp 97.8 F 11/07/19 07:43 Pulse 77 11/07/19 10:50 Resp 19 H 11/07/19 10:50 BP 119/70 11/07/19 10:50 Pulse Ox 95 11/07/19 10:50 Discharge Plan Discharge Patient Disposition: Xfer SNF Condition: Stable Prescriptions: New clopidogrel 75 mg Tablet 75 mg PO DAILY Qty: 30 RF: 0 atorvastatin 40 mg Tablet 80 mg PO DAILY Qty: 60 RF: 0 furosemide [Lasix] 20 mg tablet 20 mg PO DAILY Qty: 30 RF: 0 cefdinir 300 mg capsule 300 mg PO BID 14 Days Qty: 28 RF: 0 Continued ascorbic acid (vitamin C) 500 mg capsule 500 mg PO BID RF: 0 famotidine 20 mg tablet 20 mg PO DAILY RF: 0 finasteride 5 mg tablet 5 mg PO DAILY RF: 0 gabapentin 300 mg capsule 300 mg PO TID RF: 0 guaifenesin 400 mg tablet 400 mg PO DAILY PRN (Reason: cough) RF: 0 Lantus Solostar U-100 Insulin 100 unit/mL (3 mL) insulin pen 50 unit SUBCUT DAILY RF: 0 loperamide 2 mg tablet 2 mg PO Q6H PRN (Reason: Diarrhea) RF: 0 tamsulosin 0.4 mg capsule 0.4 mg PO BEDTIME RF: 0 acetaminophen [Tylenol 8 Hour] 650 mg tablet extended release 650 mg PO Q6H PRN (Reason: Mild Pain (Scale Score 1-4)) RF: 0 methenamine hippurate 1 gram Tablet 1 g PO BID RF: 0 Admelog U-100 Insulin lispro 100 unit/mL Solution 12 unit SUBCUT TID RF: 0 Discontinued aspirin 81 mg tablet,chewable 81 mg PO DAILY RF: 0 atorvastatin 20 mg tablet 20 mg PO DAILY RF: 0 lisinopril 5 mg tablet 5 mg PO BEDTIME RF: 0 metoprolol tartrate 50 mg tablet 50 mg PO DAILY RF: 0 Discharge Orders: Discharge Order (Routine); Ordered 11/07/19 Ordered By: Brijesh August Referrals: Bj Serrato DO [Primary Care Provider] - 4-7 days Discharge Diet: Cardiac and Diabetic Discharge Activity: Increase activity as tolerated Activity Restrictions/Additional Instructions: Dizziness prescribed Monitor for fluid overload CBC, BMP 3 days Discharge Attestations Time Spent in Discharge Care*: greater than 30 min Quality Metrics Clinical Quality Measures During this hospital stay, did patient experience: AMI Clinical Trial Participant: No Contraindication to aspirin (AMI): Treatment changed Contraindication to statin: Statin prescribed Coding Level of Care Code Acute Water Filtration Technician for Chg Fwd Diagnoses CHF exacerbation I50.9 Pneumonia J18.9 Laterality: right Lung location: unspecified part of lung Pneumonia type: due to unspecified organism NSTEMI (non-ST elevated myocardial infarction) I21.4 Ischemic cardiomyopathy I25.5 Acute kidney injury superimposed on chronic kidney disease N17.9; N18.9
[2019-11-07 11:28] LABS: Glucose Point of Care 193 mg/dL (70-110)
[2019-11-07 14:31] VITALS: BP 113/68; PULSE 69; RESP 25; TEMP 36.6; O2SAT 95
[2019-11-07 15:33] VITALS: BP 113/68; PULSE 69; RESP 25; TEMP 36.6; O2SAT 95
--- NOTE | 2019-11-07 15:49 | PC.NURSE ---
1403 Report called to Ligia RODGERS at [facility] IV dc cath intact min bleeding noted patient discharged to [facility] transportation with [facility] patient assisted to wheel chair for transportation to [facility] patient alert oriented and stable all belongings as well as discharge packet in hand
--- NOTE | 2019-11-08 16:06 | PC.RESP ---
PT DOES NOT HAVE A QUALIFYING HX OF LUNG DISEASE AND DOES NOT QUALIFY FOR PULMONARY REHAB.
== END 2019-11-07 15:02 | disposition skilled nursing facility (03) | DRG 280 ==
LOC: ER 18:18 → CSU 20:03
PROVIDERS: Emergency Medicine; Family Medicine; Admitting Provider Internal Medicine; PCP Internal Medicine; Visit Provider Internal Medicine
DX: I21.4 Non-ST elevation (NSTEMI) myocardial infarction (principal); J18.9 Pneumonia, unspecified organism; I13.0 Hypertensive heart and chronic kidney disease with heart failure and stage 1 through stage 4 chronic kidney disease, or unspecified chronic kidney disease; N17.9 Acute kidney failure, unspecified; N18.4 Chronic kidney disease, stage 4 (severe); I25.5 Ischemic cardiomyopathy; I50.9 Heart failure, unspecified; Z79.82 Long term (current) use of aspirin; I25.10 Atherosclerotic heart disease of native coronary artery without angina pectoris; Z95.5 Presence of coronary angioplasty implant and graft; E11.22 Type 2 diabetes mellitus with diabetic chronic kidney disease; Z89.422 Acquired absence of other left toe(s); Z20.828 Contact with and (suspected) exposure to other viral communicable diseases; N40.0 Benign prostatic hyperplasia without lower urinary tract symptoms; G89.29 Other chronic pain; M54.9 Dorsalgia, unspecified; E78.5 Hyperlipidemia, unspecified; I25.2 Old myocardial infarction; Z87.891 Personal history of nicotine dependence
CPT/HCPCS: 12345; 36415; 36416; 36600; 71045; 80048; 80051; 80053; 82728; 82810; 82962; 83605; 83880; 83986; 84484; 85025; 85378; 85384; 86140; 86403; 87040; 87449; 87635; 87804; 93005; 93970; 94660; 96372; 99283; J0696; J1815 ×2; J3370; J3490; J7040; J7050; Q0144

== ENCOUNTER 2020-01-21 11:31 | Emergency (ER) | payer OTHER, SELFPAY ==
--- NOTE | 2020-01-21 11:43 | XR_ITS ---
WS: [id number] XR chest 1V portable [id number] REASON FOR EXAM: COVID 19 FINDINGS: There is moderate elevation of the left hemidiaphragm with a small area of linear atelectasis. There are coarse interstitial changes seen centrally in the right lung and left lower lung. There is cardiomegaly. Compared to the previous examination of 11/06/2019 the atelectasis in the right lower lung has improv ed. No other significant interval change is noted. XR/XR chest 1V portable [id number] IMPRESSION: No acute chest abnormality.
[2020-01-21 11:44] VITALS: BP 104/64; PULSE 84; RESP 16; TEMP 36.4; O2SAT 96; BMI 28.8
--- NOTE | 2020-01-21 12:38 | ED_ITS ---
HPI - General Adult General: Chief complaint: General Medical Stated complaint: COVID POSITIVE SOB Time Seen by Provider: 01/21/20 11:43 History of Present Illness: HPI narrative: This patient is a 74-year-old male brought in from a skilled nursing. His doctor was making rounds this morning and thought that he seemed altered. They checked his oxygen and it was in the 80s. EMS was called. The patient is a full code. He was brought to the ED on a nonrebreather mask at 15 L/min. His sat on that mask is in the mid 90s. He seems alert but is mostly focused on pain in his buttocks where he has a sacral decubitus. He is able to tell me that he has COVID-19 but otherwise does not seem to totally grasp the situation. The skilled nursing says that he had refused medications last night and this morning as well. He refused the lab draw and IV. He is confirmed, by the skilled nursing staff, to be a full code. I do not think he is competent right now to make decisions about refusing care. I do not know when his positive test was. I am waiting for confirmation from the skilled nursing. Associated symptoms: Reports malaise, rash and vomiting; Deny chest pain or dyspnea Review of Systems General: Reports: 10 or more systems reviewed and unremarkable except in HPI and below and ROS unobtainable due to mental status (Limited review of systems however reliability is unclear) Const: Reports: fever(s), chills, fatigue and malaise Card: Denies: chest pain or swelling of feet/ankles Resp: Denies: dyspnea, productive cough or non-productive cough GI: Reports: vomiting and diarrhea : Denies: flank pain Musc: Denies: neck pain or back pain Skin/Breast: Reports: rash and skin pain (Sore on his buttocks) [facility] ED PFSH: Medical History BPH (benign prostatic hyperplasia) CAD (coronary artery disease) Chronic back pain CKD (chronic kidney disease), stage IV Diabetes Diabetic foot ulcer Osteomyelitis status post amputation Gross hematuria Hematuria HTN (hypertension) Hyperlipidemia Insulin-requiring or dependent type II diabetes mellitus Ischemic cardiomyopathy 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 Myocardial infarction Surgical History H/O cardiac catheterization Ischemic cardiomyopathy with three-vessel coronary disease History of biopsy of bladder Biopsy revealed intense acute on chronic cystitis without any signs of malignancy, 01/03 S/P coronary artery stent placement S/P cystoscopy S/P tonsillectomy Status post amputation of toe Family History Other CAD (coronary artery disease) Myocardial infarction Stroke Social History Smoking and tobacco status: former smoker Alcohol intake: never Housing: [facility] Physical Exam Const: COMMON NORMALS: alert EXAM LIMITATIONS: altered mental status GENERAL APPEARANCE: cooperative and in distress NUTRITIONAL APPEARANCE: thin ORIENTATION/CONSCIOUSNESS: Yes awake, Yes oriented to person and Yes confused HENMT: HEAD & SCALP: normal to inspection FACE & SINUS: normal facial exam Eye: GENERAL EYE: appearance normal, both eyes and all related structures Neck/C-Spine: COMMON NORMALS: supple, no meningeal signs and no JVD Chest: COMMONS NORMALS: normal inspection of the chest Resp: EFFORT & INSPECTION: Yes tachypneic, Yes labored and Yes uses accessory muscles AUSCULTATION: crackles Cardio: COMMON NORMALS: no JVD, regular rate, regular rhythm and No murmurs present (Cardio) RATE: regular rate RHYTHM: regular rhythm GI: COMMON NORMALS: Normal to inspection, nondistended, normoactive bowel sounds present, Soft to palpation and non-tender INSPECTION: Yes normal to inspection AUSCULTATION: Yes normoactive bowel sounds PALPATION: Yes Soft to palpation Back/Pelvis: COMMON NORMALS: thoracic and lumbar spine normal to inspection Extremity: COMMON NORMALS: normal to inspection Neuro: COMMON NORMALS: moves all extremities, no focal motor deficits and no sensory deficits noted SENSORIUM/ORIENTATION: Yes alert and Yes oriented to person MENINGEAL SIGNS: Yes no meningeal signs Psych: COMMON NORMALS: mental status grossly normal, cooperative and normal affect Skin: COMMON NORMALS: no rashes or lesions noted and turgor normal SKIN IMAGES (MALE): 1. Sacral skin breakdown, stage I in most areas with a few areas of stage II. GENERAL SKIN EXAM: no rashes or lesions noted and turgor normal Course ED course: This patient is a full code. I spoke with his family member and they confirmed that. He was sent from the skilled nursing with known COVID and worsening of his mental status and oxygen. He also was noted to have some acute renal failure. He has chronic renal issues but this definitely appears to be an acute worsening. He was given 1 dose of remdesivir here and also Decadron and Lovenox. No beds are available here or in [place] and so he will be transferred to in [place]. Vital Signs: Vital signs: Vital Signs Temperature 97.6 F 01/21/20 11:44 Pulse Rate 91 01/21/20 18:10 Respiratory Rate 24 H 01/21/20 18:10 Blood Pressure 116/67 01/21/20 17:45 Pulse Oximetry 92 01/21/20 18:10 [facility] - General Adult Lab Data: Labs: Lab Results 01/21/20 01/21/20 01/21/20 Range/Units 12:48 12:48 12:48 WBC 5.7 (4.0-10.0) 10^3/ uL RBC 4.69 (4.1-5.3) 10^6/u L Hgb 13.6 (11.7-16.6) g/dL Hct 43.5 (42.0-52.0) % MCV 92.8 (80-94) fL MCH 29.0 (28.0-34.0) pg MCHC 31.3 (30.0-36.0) g/dL RDW 13.9 (12.1-15.1) % Plt Count 182 (130-400) 10^3/c mm MPV 10.9 H (7.4-10.4) fL Neut % (Auto) 80.9 % Lymph % (Auto) 6.9 % [place] % (Auto) 10.9 % Eos % (Auto) 0.2 % Baso % (Auto) 0.2 % Neut # (Auto) 4.60 (1.8-7.7) 10^3/u L Lymph # (Auto) 0.4 L (0.8-4.8) 10^3/u L [place] # (Auto) 0.6 (0.2-0.9) 10^3/u L Eos # (Auto) 0.0 (0.0-0.8) 10^3/u L Baso # (Auto) 0.0 (0.0-0.1) 10^3/u L Nucleated RBC % (a uto) 0 % Nucleated RBCs # 0.0 /100WBC PT 12.90 (12.1-14.9) SECO NDS INR 0.94 (0.8-1.2) Fibrinogen 692 H (174-498) mg/dL D-Dimer 1.00 H (0-0.59) ug/mIFE U Sodium 135 L (136-145) mmol/L Potassium 5.1 (3.5-5.1) mmol/L Chloride 96 L (98-107) mmol/L Carbon Dioxide 14 L (22-29) mmol/L Anion Gap 30.1 H (5-19) BUN 105 H* D (8-23) mg/dL Creatinine 4.2 H (0.7-1.2) mg/dL GFR Calculation Not Reportable Glucose 421 H (65-115) mg/dL Calculated Osmolal ity 331 H (285-295) mOsm/k g Lactic Acid (0.5-2.2) mmol/L Lactic Acid (Sepsi s) (0.5-2.2) mmol/L Calcium 8.9 (8.5-10.5) mg/dL Ferritin 1421 H (30-400) ng/mL Total Bilirubin 0.4 (0.15-1.2) mg/dL AST 22 (0-40) U/L ALT 12 (0-41) U/L Alkaline Phosphata se 99 (40-130) IU/L C-Reactive Protein 77.8 H (0.0-4.9) mg/L NT-Pro-B Natriuret Pep 1782 H (0-450) pg/mL Total Protein 7.7 (6.6-8.7) g/dL Albumin 3.7 (3.5-5.2) g/dL Globulin 4.0 (1.3-4.6) g/dL Procalcitonin 0.37 (0-0.5) ng/mL 01/21/20 01/21/20 Range/Units 12:48 16:20 WBC (4.0-10.0) 10^3/ uL RBC (4.1-5.3) 10^6/u L Hgb (11.7-16.6) g/dL Hct (42.0-52.0) % MCV (80-94) fL MCH (28.0-34.0) pg MCHC (30.0-36.0) g/dL RDW (12.1-15.1) % Plt Count (130-400) 10^3/c mm MPV (7.4-10.4) fL Neut % (Auto) % Lymph % (Auto) % [place] % (Auto) % Eos % (Auto) % Baso % (Auto) % Neut # (Auto) (1.8-7.7) 10^3/u L Lymph # (Auto) (0.8-4.8) 10^3/u L [place] # (Auto) (0.2-0.9) 10^3/u L Eos # (Auto) (0.0-0.8) 10^3/u L Baso # (Auto) (0.0-0.1) 10^3/u L Nucleated RBC % (a uto) % Nucleated RBCs # /100WBC PT (12.1-14.9) SECO NDS INR (0.8-1.2) Fibrinogen (174-498) mg/dL D-Dimer (0-0.59) ug/mIFE U Sodium (136-145) mmol/L Potassium (3.5-5.1) mmol/L Chloride (98-107) mmol/L Carbon Dioxide (22-29) mmol/L Anion Gap (5-19) BUN (8-23) mg/dL Creatinine (0.7-1.2) mg/dL GFR Calculation Glucose (65-115) mg/dL Calculated Osmolal ity (285-295) mOsm/k g Lactic Acid 3.2 H (0.5-2.2) mmol/L Lactic Acid (Sepsi s) 1.6 (0.5-2.2) mmol/L Calcium (8.5-10.5) mg/dL Ferritin (30-400) ng/mL Total Bilirubin (0.15-1.2) mg/dL AST (0-40) U/L ALT (0-41) U/L Alkaline Phosphata se (40-130) IU/L C-Reactive Protein (0.0-4.9) mg/L NT-Pro-B Natriuret Pep (0-450) pg/mL Total Protein (6.6-8.7) g/dL Albumin (3.5-5.2) g/dL Globulin (1.3-4.6) g/dL Procalcitonin (0-0.5) ng/mL Discharge Plan Discharge Patient Disposition: Xfer Other Clinical Impression: COVID-19 Decubitus ulcer of sacral area Qualifiers: Pressure injury stage: stage 2 Qualified Code(s): L89.152 - Pressure ulcer of sacral region, stage 2 Referrals: Bj Serrato DO [Primary Care Provider] - Discharge Date/Time: 01/21/20 18:20 Coding Level of Care Code ED Off Track Betting Manager for Chg Fwd Exam Comprehensive
[2020-01-21 13:13] LABS: INR 0.94 (0.8-1.2)
[2020-01-21 13:17] LABS: Lactic Sepsis W/Reflex 3.2 mmol/L (0.5-2.2)
[2020-01-21 13:18] LABS: Fibrinogen 692 mg/dL (174-498)
[2020-01-21 13:23] VITALS: RESP 24
[2020-01-21] MEDS: morphine 4 mg/mL SDV 1 mL IVP (13:23)
[2020-01-21] MEDS: dexamethasone 4 mg/mL INJ 6 MG IVP (13:24)
[2020-01-21 13:26] LABS: Basophils % 0.2 %; Eosinophils % 0.2 %; Hematocrit 43.5 % (42.0-52.0); Hemoglobin 13.6 g/dL (11.7-16.6); Lymphocytes # 0.4 10^3/uL (0.8-4.8); Lymphocytes % 6.9 %; Mean Corpuscular HGB Conc 31.3 g/dL (30.0-36.0); Mean Corpuscular Volume 92.8 fL (80-94); Mean Platelet Volume 10.9 fL (7.4-10.4); Monocytes # 0.6 10^3/uL (0.2-0.9); Monocytes % 10.9 %; Neutrophils % 80.9 %; Nucleated Red Blood Cells % 0 %; Platelet Count 182 10^3/cmm (130-400); Red Blood Count 4.69 10^6/uL (4.1-5.3); Red Cell Distribution Width 13.9 % (12.1-15.1); White Blood Count 5.7 10^3/uL (4.0-10.0)
[2020-01-21 13:27] LABS: NT Pro B Type Natriuretic Pept 1782 pg/mL (0-450); Procalcitonin 0.37 ng/mL (0-0.5)
[2020-01-21 13:38] LABS: Alanine Aminotransferase 12 U/L (0-41); Albumin Level 3.7 g/dL (3.5-5.2); Alkaline Phosphatase 99 IU/L (40-130); Anion Gap 30.1 (5-19); Aspartate Amino Transferase 22 U/L (0-40); C Reactive Protein 77.8 mg/L (0.0-4.9); Calcium 8.9 mg/dL (8.5-10.5); Carbon Dioxide 14 mmol/L (22-29); Chloride 96 mmol/L (98-107); Glucose 421 mg/dL (65-115); Osmolality Calculated 331 mOsm/kg (285-295); Potassium 5.1 mmol/L (3.5-5.1); Sodium 135 mmol/L (136-145); Total Bilirubin 0.4 mg/dL (0.15-1.2); Total Protein 7.7 g/dL (6.6-8.7)
[2020-01-21 13:43] LABS: Blood Urea Nitrogen 105 mg/dL (8-23)
[2020-01-21 13:55] LABS: Ferritin 1421 ng/mL (30-400)
[2020-01-21 14:24] VITALS: BP 114/63; PULSE 91; RESP 24; O2SAT 95
[2020-01-21 14:39] LABS: Reflex Lactate Order REFLEX LACTIC ORDERD
[2020-01-21 16:51] LABS: Lactic Acid level (Lactate) 1.6 mmol/L (0.5-2.2)
[2020-01-21 17:45] VITALS: BP 116/67; PULSE 90; RESP 22; O2SAT 94
[2020-01-21 18:10] VITALS: PULSE 91; RESP 24; O2SAT 92
== END 2020-01-21 18:20 | disposition other institution (70) ==
LOC: ER 12:13
PROVIDERS: Emergency Provider Emergency Medicine; PCP Internal Medicine
DX: U07.1 COVID-19 (principal); L89.152 Pressure ulcer of sacral region, stage 2; I12.9 Hypertensive chronic kidney disease with stage 1 through stage 4 chronic kidney disease, or unspecified chronic kidney disease; E11.22 Type 2 diabetes mellitus with diabetic chronic kidney disease; N18.4 Chronic kidney disease, stage 4 (severe); I25.10 Atherosclerotic heart disease of native coronary artery without angina pectoris; E78.5 Hyperlipidemia, unspecified; Z89.432 Acquired absence of left foot; I25.2 Old myocardial infarction; Z87.891 Personal history of nicotine dependence
CPT/HCPCS: 12345; 36415; 71045; 80053; 82728; 83605; 83880; 84145; 85025; 85378; 85384; 85610; 86140; 96365; 96375; 99281; 99285; J1100; J2270